=== PATIENT | male | born 1935 | race Caucasian/White ===

== ENCOUNTER → 2018-01-14 | Outpatient (CLI) | payer MEDICARE ==
[~2018-01-14] MED LIST: ASC500 PO; ASPI-1471 PO; ASPI-715 PO; CALC-649 PO; CAR3.125 PO; CARV12.577 PO; CARV12.578 PO; CEPH500C24 PO; CLOT30CR TP; DOCU-416 PO; FIN5 PO; FINA5TAB67 PO; IBUP600T22 PO; MULT-1335 PO; NIT4 SL; OXYC-373 PO; PNEU0.5D3 IM; SIMV-42 PO; SIMV-49 PO; TAM4 PO; TAMS0.4C25 PO
[2018-01-14 15:09] LABS: PLATELET COUNT, AUTOMATED 181 K/uL (150-450)
[2018-01-14 15:28] LABS: LDL CHOLESTEROL 63 mg/dl
== END ==
LOC: LAB 14:47
PROVIDERS: ATTEND Internal Medicine
DX: I25.10 Atherosclerotic heart disease of native coronary artery without angina pectoris (principal); Z95.5 Presence of coronary angioplasty implant and graft; E78.5 Hyperlipidemia, unspecified; I10 Essential (primary) hypertension; N40.0 Benign prostatic hyperplasia without lower urinary tract symptoms
CPT/HCPCS: 36415; 81001; 82040; 82247; 82310; 82374; 82435; 82465; 82565; 82947; 83718; 84075; 84132; 84153; 84155; 84295; 84443; 84450; 84460; 84478; 84520; 85025

== ENCOUNTER → 2018-06-26 | Outpatient (CLI) | payer MEDICARE ==
[~2018-06-26] MED LIST changes: +CAR6.25 PO
--- NOTE | 2018-06-26 15:50 | EKG ---
FACILITY: [facility] PATIENT NAME: SUHA SHAIKH : [id number] MR: [id number] V: [id number] EXAM DATE: ORDERING PHYSICIAN: FELICITY GONZALEZ TECHNOLOGIST: PARISH Test Reason : SX, CAD Blood Pressure : / mmHG Vent. Rate : 049 BPM Atrial Rate : 049 BPM P-R Int : 148 ms QRS Dur : 086 ms QT Int : 436 ms P-R-T Axes : 081 050 073 degrees QTc Int : 393 ms Sinus bradycardia Low voltage QRS Borderline ECG When compared with ECG of 13-JUL-2017 08:58, No significant change was found Confirmed by FELICITY GONZALEZ ([id number]) on 06/27/2018 12:32:17 PM Referred By: YESSENIA Confirmed By:FELICITY GONZALEZ
[2018-06-26 15:53] LABS: PLATELET COUNT, AUTOMATED 161 K/uL (150-450)
[2018-06-26 16:06] LABS: LDL CHOLESTEROL 59 mg/dl
== END ==
LOC: LAB 14:25
PROVIDERS: ATTEND Internal Medicine
DX: Z01.818 Encounter for other preprocedural examination (principal); R00.1 Bradycardia, unspecified; R94.31 Abnormal electrocardiogram [ECG] [EKG]; I25.10 Atherosclerotic heart disease of native coronary artery without angina pectoris; Z95.5 Presence of coronary angioplasty implant and graft; I10 Essential (primary) hypertension
CPT/HCPCS: 36415; 81001; 82040; 82247; 82310; 82374; 82435; 82465; 82565; 82947; 83036; 83718; 84075; 84132; 84155; 84295; 84443; 84450; 84460; 84478; 84520; 85025

== ENCOUNTER → 2018-07-09 | Outpatient (CLI) | payer MEDICARE ==
[~2018-07-09] MED LIST changes: +REGADENOSON 0.4 MG/5 ML SYR ONE
--- NOTE | 2018-07-10 07:40 | RADIOLOGY IMAGING REPORT ---
[place] [facility] [place] NAME: Jori Rai : 1935 MR: [id number] V: [id number] EXAM DATE: ORDERING PHYSICIAN: FELICITY GONZALEZ TECHNOLOGIST: Location: [facility] Patient: Jori Rai : 1935 Visit/Account:[id number] Date of Sevice: 07/09/2018 REGADENOSON (LEXISCAN) MYOCARDIAL PERFUSION IMAGING. EXAMINATION: Single isotope SPECT imaging with regadenoson infusion and gated SPECT imaging. DATE OF EXAMINATION: July 09, 2018. REQUESTING PHYSICIAN:LISA INDICATION: Coronary artery disease PROCEDURE: After informed consent the patient received an intravenous injection of Tc-99m sestamibi followed at an appropriate time interval by rest imaging. The patient then subsequently received an intravenous infusion of 0.4 mg of regadenoson per protocol without complication. Resting heart rate was 53 bpm with a peak heart rate of 73 bpm. Blood pressure at rest was 144/94 and following infusi on was 139/88 . Baseline EKG demonstrates sinus rhythm. There were no EKG changes of ischemia follo wing infusion. Non-specific symptoms were reported. The patient then received an intravenous inject ion of Tc-99m sestamibi followed by stress imaging. DOSE of Tc-99m sestamibi (mCi): REST: 12.4 STRESS: 28.9 RAW DATA: Examination of the summed raw data revealed a fair quality study. MYOCARDIAL PERFUSION: The tomographic images demonstrate normal myocardial perfusion study without e vidence of myocardial ischemia or infarct. GATED IMAGES: The gated images demonstrate normal LV systolic performance and wall motion with LVEF 63%. IMPRESSION: 1. Nondiagnostic ECG portion of Lexiscan stress test. 2. Normal myocardial perfusion study without evidence of myocardial ischemia or infarct 3. Normal LV systolic performance and wall motion with LVEF 63% Report Dictated By: Magdy Camilo at 07/10/2018 7:33 AM Report E-Signed By: Magdy Camilo at 07/10/2018 7:36 AM WSN:[id number]
--- NOTE | 2018-07-10 08:03 | RT STRESS TEST REPORT ---
FACILITY: [facility] PATIENT NAME: SUHA SHAIKH : [id number] MR: [id number] V: [id number] EXAM DATE: ORDERING PHYSICIAN: FELICITY GONZALEZ TECHNOLOGIST: Radha Acquisition Time: 2018-07-09 14:42:08 Total Exercise Time: 00:01:00 Test Indications: CAD Medications: See chart Protocol: LEXISCAN Max HR: 075 BPM 55% of Pred: 135 BPM Max BP: 153/076 mmHG Max Work Load: 1.0 METS Impression No EKG changes to suggest ischemia. Nuclear medicine report to follow Confirmed by FELICITY GONZALEZ ([id number]) on 07/10/2018 8:04:08 AM Referred By: Overread By: FELICITY GONZALEZ
== END ==
LOC: NUC 00:35
PROVIDERS: ATTEND Internal Medicine
DX: Z01.818 Encounter for other preprocedural examination (principal); I25.10 Atherosclerotic heart disease of native coronary artery without angina pectoris; Z95.5 Presence of coronary angioplasty implant and graft; I10 Essential (primary) hypertension
CPT/HCPCS: 78452; 93017; A9500; J2785

== ENCOUNTER 2018-07-15 01:09 | Inpatient (IN) | payer MEDICARE ==
--- NOTE | 2018-07-12 15:54 | HISTORY AND PHYSICAL ---
DATE OF ADMISSION: July 15, 2018 CHIEF COMPLAINT BPH with lower urinary tract symptoms and incomplete bladder emptying. HISTORY OF PRESENT ILLNESS Patient is an 83-year-old white male with a long history of BPH symptoms and elevated PSA who is status post three prior prostate biopsies in the and 2001. He is currently on medical therapy with Flomax and Proscar with increasing symptoms. over several years, and his residual has remained approximately 200 to 300. The patient did try to increase his Flomax to twice a day, but was not able to tolerate this dose secondary to dizziness. Urologic evaluation included a transurethral ultrasound of the prostate which revealed a 77 mL volume prostate. On CT scan several years ago, his prostate was approximately 95 mL in volume. A flexible cystoscopy was performed in the office which showed no urethral strictures; however, he had trilobar hypertrophy with a moderate median lobe and a 2 to 3+ trabeculated bladder. His most current PSA is 2.76 and has been stable for the last nine years while he has been on Proscar. Given the size of his prostate, he has elected to undergo an open, simple prostatectomy. Options of transurethral procedures were discussed with the patient. He is informed his prostatic size is at the borderline for a standard transurethral resection of the prostate. PAST MEDICAL HISTORY 1. Hypercholesterolemia. 2. Hypertension. 3. BPH with elevated PSA. 4. Coronary artery disease, status post TX in 1999. 5. Gastroesophageal reflux disease. PAST SURGICAL HISTORY 1. Cardiac stenting in 1999. 2. Laminectomy. 3. C-spine surgery. 4. Colonoscopy. ALLERGIES No known drug allergies. CURRENT MEDICATIONS 1. Aspirin. 2. Coreg. 3. Finasteride. 4. Flomax. 5. Mycostatin. 6. Simvastatin. FAMILY HISTORY Noncontributory. REVIEW OF SYSTEMS Patient denies chest pain, shortness of breath, dyspnea on exertion, nausea, vomiting, bleeding disorder, liver disease, or chronic headaches. LABORATORY DATA A urinalysis on the was normal without evidence of hematuria or infection. Recent PSA on the was also 1.96. A CBC on the 26 of June revealed a hematocrit of 43% and 161,000 platelets. The patient has been seen by Dr. Barone for cardiac clearance. PHYSICAL EXAMINATION GENERAL: Patient is a well-developed, well-nourished male in no acute distress. HEENT: Normocephalic, atraumatic. CHEST: Clear to auscultation bilaterally. CARDIOVASCULAR: Regular rate and rhythm. ABDOMINAL: Soft, nontender. No masses are palpated. GENITOURINARY: Deferred to the OR. EXTREMITIES: Without clubbing, cyanosis, or edema. NEUROLOGIC: Nonfocal. IMPRESSION An 83-year-old white male with a long history of increasing benign prostatic hypertrophy symptoms, now for open, simple prostatectomy. Specific risks and benefits of the procedure were discussed. Risks include bleeding, need for blood transfusion, infection, damage or scar formation to urethra, bladder, vessels, nerves, and bowels, possible leakage of urine from the surgical site, failure to improve symptoms, rare urinary incontinence, retrograde ejaculation, and need for another procedure. PLAN Will perform an open, simple, retrograde prostatectomy. TAYO
[~2018-07-15] VITALS: Ht 167.6 cm; Wt 59.9 kg
[2018-07-15] VITALS (11 sets, daily range): BP systolic 99–183; BP diastolic 53–103
[~2018-07-15 01:09] MED LIST changes: -REGADENOSON 0.4 MG/5 ML SYR ONE
[2018-07-15] MEDS ORDERED: ceFAZolin(*) 1 GM VIAL 1 GM in NS(*) 0.9% 100 ML ADDVANT BAG 100 ML IVPB ONE (06:30)
[2018-07-15] MEDS ORDERED: LIDOCAINE/SOD BICARB 8.4% SYR ID ONE (06:30)
[2018-07-15] MEDS ORDERED: NORMOSOL R SOLN(*) 1000 ML BAG 1,000 ML IV PRN (06:30)
[2018-07-15] MEDS ORDERED: FAMOTIDINE 20 MG TAB PO ONE (06:30)
[2018-07-15] MEDS: MIDAZOLAM 2 MG/2 ML VIAL IVP PRN ×2 (07:06→07:40)
[2018-07-15] MEDS ORDERED: ROCURONIUM BROM 10 MG/ML 10 ML ONE (07:18)
[2018-07-15] MEDS ORDERED: PROPOFOL EMUL(*) 10MG/ML 20 ML 20 ML ONE (07:18)
[2018-07-15] MEDS ORDERED: fentaNYL CITR 250 MCG/5 ML AMP ONE (07:18)
[2018-07-15] MEDS ORDERED: SUGAMMADEX SOD 200 MG/2 ML SDV ONE (07:18)
[2018-07-15] MEDS ORDERED: ONDANSETRON 4 MG/2 ML VIAL ONE (07:18)
[2018-07-15] MEDS ORDERED: LIDOCAINE MPF 1% 5 ML VIAL ONE (07:18)
[2018-07-15] MEDS ORDERED: DEXAMETHASONE SOD 4 MG/ML VIAL ONE (07:18)
[2018-07-15] MEDS ORDERED: KETAMINE HCL-NS 50 MG/5 ML SYR ONE (07:21)
[2018-07-15] MEDS ORDERED: ceFAZolin(*) 1 GM VIAL 1 GM, GENTAMICIN(*) 80 MG/2 ML VIAL 60 MG in NS 0.9% IRRIGATION ... IR ONE ×2 (07:30)
[2018-07-15] MEDS ORDERED: HYDROmorphone HCL 2 MG/ML SDV ONE (07:51)
[2018-07-15] MEDS ORDERED: GLYCOPYRROLATE 0.2MG/ML 1 ML INJ ONE (08:00)
[2018-07-15] MEDS ORDERED: INDIGOTINDISULF SOD 40 MG/5 ML ONE (09:14)
[2018-07-15] MEDS ORDERED: NEOMYCIN/POLYMYX/BACITR 30 GM TP ONE ×2 (09:15→10:36)
[2018-07-15] MEDS ORDERED: GELATIN SPONGE SZ 100 ONE (09:49)
[2018-07-15 11:36] LABS: PLATELET COUNT, AUTOMATED 142 K/uL (150-450)
[2018-07-15] MEDS ORDERED: MORPHINE 1 MG/ML 30 ML PCA IV PRN (11:45)
[2018-07-15] MEDS ORDERED: ZOLPIDEM TARTRATE 5 MG TAB PO PRN (11:45)
[2018-07-15] MEDS ORDERED: PHENAZOPYRIDINE 200 MG TAB PO PRN (11:45)
[2018-07-15] MEDS ORDERED: NS(*) 0.9% 1000 ML BAG 1,000 ML IV PRN (11:45)
[2018-07-15] MEDS ORDERED: BELLADONNA ALK/OPIUM 60MG SUPP PR PRN (11:55)
[2018-07-15] MEDS ORDERED: ONDANSETRON 4 MG/2 ML VIAL IVP PRN (12:00)
[2018-07-15] MEDS ORDERED: NALOXONE HCL 0.4 MG/ML VIAL IVP PRN (12:00)
[2018-07-15] MEDS: KETOROLAC 15 MG/ML VIAL IVP SCH ×2 (12:54→17:24)
[2018-07-15] MEDS ORDERED: NS 0.9% 3000 ML IRRIGATION BAG 3,000 ML IR ONE ×2 (13:03→15:18)
[2018-07-15] MEDS ORDERED: PCA LOCKBOX KEYS XX PRN (14:15)
[2018-07-15] MEDS: NEOMYCIN/POLYMYX/BACITR OINT 1 PACKET TP SCH (20:41)
[2018-07-15] MEDS: DOCUSATE SODIUM 100 MG CAP PO SCH (20:41)
[2018-07-15] MEDS ORDERED: NS 0.9% 3000 ML IRRIGATION BAG 6,000 ML IR ONE (22:18)
[2018-07-15] MEDS: NS 0.9% 3000 ML IRRIGATION BAG 3,000 ML in NS 0.9% 3000 ML IRRIGATION BAG 3,000 ML IR PRN (22:54)
[2018-07-16] MEDS: NS 0.9% 3000 ML IRRIGATION BAG 3,000 ML in NS 0.9% 3000 ML IRRIGATION BAG 3,000 ML IR PRN ×2 (00:03→12:28)
[2018-07-16] MEDS: KETOROLAC 15 MG/ML VIAL IVP SCH ×4 (00:03→18:45)
[2018-07-16] MEDS ORDERED: NS 0.9% 3000 ML IRRIGATION BAG 3,000 ML IR ONE ×2 (03:53→14:11)
--- NOTE | 2018-07-16 04:50 | OPERATIVE REPORT 1 ---
EVENT DATE: July 15, 2018 SURGEON: Hugh Mensah MD ANESTHESIOLOGIST: Frandy Burrows MD ANESTHESIA: General anesthetic. PADDED PRODUCTS FINISHER: Xander Lala MD PREOPERATIVE DIAGNOSIS Benign prostatic hyperplasia with lower urinary tract symptoms. POSTOPERATIVE DIAGNOSIS Benign prostatic hyperplasia with lower urinary tract symptoms. PROCEDURE PERFORMED Open simple retropubic prostatectomy. ESTIMATED BLOOD LOSS 500 mL. INTRAVENOUS FLUIDS Crystalloids. DRAINS 1. A 22-Tristanian three-way Elizabeth catheter. 2. An 18-Tristanian round Flynn closed suction drain. PATHOLOGY Prostate adenoma to pathology for permanent section. COMPLICATIONS None. CONDITION Patient taken to recovery room awake and in stable condition. STATEMENT OF MEDICAL NECESSITY Patient is an 83-year-old white male with a long history of BPH symptoms, who has failed medical management and is now being brought to the operating room for planned definitive surgical treatment. His workup has revealed approximately 80 mL volume prostate with a moderate median lobe extension and a 3+ trabeculated bladder. He is now being brought to the operating room for planned simple retropubic prostatectomy. DESCRIPTION OF PROCEDURE Patient was brought to the operating room, and after general anesthetic was obtained, he was placed supine on the operating room table. His hips were slightly flexed open, and he was prepped and draped sterilely. A lower midline incision was made from the pubic symphysis to approximately 2 cm below the umbilicus in the midline with the #15 blade knife. This was taken down to the aponeurosis of the linea alba with the electrocautery. The fascia was then incised longitudinally, with the rectus muscles being split in the midline to enter the space of Retzius. A self-retaining Bookwalter retractor was placed for exposure. A hemostatic stitch was placed on the anterior surface of the prostate at the 12 o'clock position, just under the pubic symphysis, superficially to provide hemostasis from the dorsal venous complex, with a 2-0 chromic gut stitch. After this was placed, there was a small amount of bleeding from the 7 o'clock position from the suture insertion, and another stitch was placed at this area to provide hemostatic control. At this point, the bladder neck was palpated and confirmed the position by filling the balloon on the Elizabeth catheter. At this point, two rows of hemostatic stitches were placed transversely across the prostate on the anterior surface from the 4 to 8 o'clock positions. One was right at the bladder neck and one just more distally toward the apex, approximately 1 cm apart. Following this, the capsulotomy was made with the Bovie to expose the adenoma. The plane between the pseudocapsule and adenoma was developed digitally. After it was developed around both laterally and anteriorly, the Elizabeth catheter was removed and the apical part of the dissection was completed digitally. At the bladder neck, the adenoma was transected with the electrocautery. On inspection, there was a small amount of median lobe extension remaining. This was then taken sharply as well at the bladder neck. Indigo carmine was given intravenously, and efflux of clear urine was noted from the bladder. Following this, copious amounts of double antibiotic solution were used in the incision. Deep hemostatic stitches were placed at the 5 and 7 o'clock positions in the prostatic fossa, and this was followed by re-trigonalization of the bladder neck using two #2-0 chromic stitches going from the bladder neck down to just next to the apex. Following this, a three-way 22-Tristanian Elizabeth catheter was guided into the meatus and down the urethra out through the apex into the prostatic fossa, where it was then guided into the bladder neck. Fifteen (15) mL of water was placed in the balloon. Then, the capsulotomy was closed with interrupted 2-0 chromic stitches to provide a watertight anastomosis. The balloon was then filled to a total of 30 mL and was irrigated with the bulb syringe. The capsulotomy incision was inspected and appeared to be watertight. At this point, small venous oozing vessels on the area of the incision and laterally were controlled with electrocautery. Again, the wound was irrigated with antibiotic solution. A Gelfoam was placed in the wound next to the prostate on the endopelvic fascia bilaterally. An 18-Tristanian rounded closed suction drain was placed through a separate stab wound incision on the patient's right side. This was then positioned in the pelvis next to but not on the capsulotomy incision. The self-retaining retractor was removed. The rectus muscle was reapproximated with interrupted #1 chromic. The fascia was closed with an 0 loop PDS. Subcuticular tissue was closed with a running 3- 0 chromic, and the skin was closed with a running 4-0 subcuticular Vicryl stitch. Skin adhesive was placed along the skin edge. A #1 silk was used to secure the drain at the skin edge. A sterile dressing was applied. The patient was begun on a slow continuous bladder irrigation with normal saline. A sterile dressing was placed. He was awakened in the operating room and taken the recovery area in stable condition. The plan will be to admit the patient for observation. We will check his labs this afternoon. He is to start ambulation today as well as a regular diet. TAYO
[2018-07-16 05:38] LABS: PLATELET COUNT, AUTOMATED 120 K/uL (150-450)
[2018-07-16 07:32] VITALS: BP 107/55
[2018-07-16] MEDS: DOCUSATE SODIUM 100 MG CAP PO SCH ×2 (08:58→20:45)
[2018-07-16] MEDS: FINASTERIDE 5 MG TAB PO SCH (08:58)
[2018-07-16] MEDS: NEOMYCIN/POLYMYX/BACITR OINT 1 PACKET TP SCH ×2 (08:58→20:45)
[2018-07-16] MEDS: ASPIRIN 81 MG ENTERIC COATED PO SCH (08:58)
[2018-07-16] MEDS: OXYBUTYNIN CHL XL 5 MG TABCR PO SCH (09:01)
[2018-07-16 09:34] VITALS: Ht 167.6 cm; Wt 59.9 kg
[2018-07-16 12:17] VITALS: BP 134/59
[2018-07-16 15:00] VITALS: BP 124/53
[2018-07-16 18:38] VITALS: BP 131/58
[2018-07-16] MEDS: SIMVASTATIN 20 MG TAB PO SCH (20:45)
[2018-07-16 20:51] VITALS: BP 129/66
[2018-07-17] VITALS (7 sets, daily range): BP systolic 101–156; BP diastolic 41–88
[2018-07-17 05:49] LABS: PLATELET COUNT, AUTOMATED 123 K/uL (150-450)
[2018-07-17] MEDS ORDERED: NS 0.9% 3000 ML IRRIGATION BAG 3,000 ML IR ONE (07:35)
[2018-07-17] MEDS: NS 0.9% 3000 ML IRRIGATION BAG 3,000 ML in NS 0.9% 3000 ML IRRIGATION BAG 3,000 ML IR PRN (07:37)
[2018-07-17] MEDS: CARVEDILOL 6.25 MG TAB PO SCH ×2 (09:30→09:41)
[2018-07-17] MEDS: OXYBUTYNIN CHL XL 5 MG TABCR PO SCH (09:41)
[2018-07-17] MEDS: DOCUSATE SODIUM 100 MG CAP PO SCH ×2 (09:41→20:51)
[2018-07-17] MEDS: ASPIRIN 81 MG ENTERIC COATED PO SCH (09:41)
[2018-07-17] MEDS: FINASTERIDE 5 MG TAB PO SCH (09:41)
[2018-07-17] MEDS: NEOMYCIN/POLYMYX/BACITR OINT 1 PACKET TP SCH ×2 (09:41→20:51)
[2018-07-17] MEDS: SIMVASTATIN 20 MG TAB PO SCH (20:51)
[2018-07-17] MEDS: APAP/HYDROCODONE 325/5 TAB PO PRN (20:54)
[2018-07-17] MEDS ORDERED: CARVEDILOL 6.25 MG TAB PO SCH (21:00)
[2018-07-18] MEDS: APAP/HYDROCODONE 325/5 TAB PO PRN (05:52)
[2018-07-18 07:23] VITALS: BP 137/64
[2018-07-18] MEDS: DOCUSATE SODIUM 100 MG CAP PO SCH (10:00)
[2018-07-18] MEDS: NEOMYCIN/POLYMYX/BACITR OINT 1 PACKET TP SCH (10:01)
[2018-07-18] MEDS: FINASTERIDE 5 MG TAB PO SCH (10:01)
[2018-07-18] MEDS: ASPIRIN 81 MG ENTERIC COATED PO SCH (10:01)
[2018-07-18] MEDS: OXYBUTYNIN CHL XL 5 MG TABCR PO SCH (10:01)
[2018-07-18 15:37] VITALS: BP 133/75
[2018-07-18] MEDS ORDERED: IBUP400T13 PO (16:23)
[2018-07-18] MEDS ORDERED: NEOM1PAC11 TP (16:24)
[2018-07-18] MEDS ORDERED: OXYB10TA21 PO (16:25)
[2018-07-18] MEDS ORDERED: HYDR-653 PO (16:26)
[2018-07-18] MEDS ORDERED: DOCU-416 PO (16:27)
--- NOTE | 2018-07-18 16:39 | DISCHARGE SUMMARY ---
DATE OF ADMISSION: July 15, 2018 DATE OF DISCHARGE: July 18, 2018 PRIMARY DIAGNOSIS Benign prostatic hypertrophy with lower urinary tract symptoms. SUMMARY OF HOSPITAL COURSE The patient is an 83-year-old white male who was admitted to the hospital on the 15 of July and was taken to the operating room and underwent an open simple retropubic prostatectomy. He had approximately 500 cc of blood loss. He was left with a LAVERNE drain and 22-Marshallese Elizabeth catheter. His postoperative course was fairly uncomplicated. His first postoperative night was uneventful. The following day he had mild discomfort. He had positive flatus and his diet was advanced. Over the course of the first day his LAVERNE put out approximately 10-15 cc per shift and his urine remained a light pink on a slow CBI. His hematocrit was 32% on postoperative day #1. Postoperative day #2 his hematocrit remained stable with stable vital signs. His LAVERNE drain was removed and he was continued on ambulation. On the 3rd postoperative day, the patient had a CBI stopped and his catheter plugged. His urine remained clear and he was deemed ready for discharge. CONDITION AT THE TIME OF DISCHARGE Good. ACTIVITY No heavy lifting for 4 weeks. INSTRUCTIONS The patient is given instructions as to Elizabeth catheter care with a urinary leg and bed bag. DISCHARGE MEDICATIONS 1. Everett. 2. Motrin. 3. Ditropan XL. 4. Antibiotic ointment to Elizabeth catheter. FOLLOW UP The patient will see me in the urology clinic on the 30 of July for Elizabeth catheter removal and voiding trial. TAYO
== END 2018-07-18 17:00 | disposition home or self-care (01) | DRG 708 ==
LOC: OR 01:09 → MED 12:35
PROVIDERS: ADMIT Urology; ATTEND Urology
PROC: 0VT00ZZ Resection of Prostate, Open Approach (ICD-10-PCS; principal; 2018-07-15 07:45)
DX: N40.1 Benign prostatic hyperplasia with lower urinary tract symptoms (principal); R39.14 Feeling of incomplete bladder emptying; I10 Essential (primary) hypertension; I25.10 Atherosclerotic heart disease of native coronary artery without angina pectoris; K21.9 Gastro-esophageal reflux disease without esophagitis; E78.00 Pure hypercholesterolemia, unspecified; I25.2 Old myocardial infarction; Z95.5 Presence of coronary angioplasty implant and graft; Z79.82 Long term (current) use of aspirin
CPT/HCPCS: 36415; 81001; 82040; 82247; 82310; 82374; 82435; 82565; 82947; 84075; 84132; 84153; 84155; 84295; 84450; 84460; 84520; 85025; 86850; 86900; 86901; 86920; 87088; 88307; 97161; A4346; J0690; J1100; J1170; J1885; J2001; J2250; J2405; J2704; J3010; J3490; J7030; J7050

== ENCOUNTER → 2019-01-09 | Outpatient (CLI) | payer MEDICARE ==
[2018-07-16 09:34] VITALS: BMI 21.3
[~2019-01-09] MED LIST changes: +HYDR-653 PO; +IBUP400T13 PO; +NEOM1PAC11 TP; +OXYB10TA21 PO
[2019-01-09 09:18] LABS: PLATELET COUNT, AUTOMATED 202 K/uL (150-450)
[2019-01-09 09:44] LABS: LDL CHOLESTEROL 70 mg/dl
== END ==
LOC: LAB 08:59
PROVIDERS: ATTEND Internal Medicine
DX: Z12.5 Encounter for screening for malignant neoplasm of prostate (principal); E78.5 Hyperlipidemia, unspecified; I10 Essential (primary) hypertension; R73.9 Hyperglycemia, unspecified; D64.9 Anemia, unspecified
CPT/HCPCS: 36415; 81001; 82607; 82728; 82746; 83036; 83540; 83550; 84443; 85025; G0103; 82040; 82247; 82310; 82374; 82435; 82465; 82565; 82947; 83718; 84075; 84132; 84153; 84155; 84295; 84450; 84460; 84478; 84520

== ENCOUNTER → 2019-01-15 | Outpatient (CLI) | payer MEDICARE ==
[2018-07-16 09:34] VITALS: BMI 21.3
[~2019-01-15] MED LIST changes: +PNEI IJ
--- NOTE | 2019-01-15 14:48 | RADIOLOGY IMAGING REPORT ---
FACILITY: [facility] [place] PATIENT NAME: Jori Rai : 1935 MR: [id number] V: [id number] EXAM DATE: ORDERING PHYSICIAN: FELICITY GONZALEZ TECHNOLOGIST: Location: [facility] [place] Patient: Jori Rai : 1935 Visit/Account:[id number] Date of Sevice: 01/15/2019 Exam type: L-SPINE 2 OR 3 VIEW History: back pain Comparison: Fibular 31/01/2012. Findings: There five nonrib-bearing lumbar-type vertebral bodies present. Again noted is the grade 1 anterolis thesis of L4 with respect L5 and mild retrolisthesis of L2 with respect L3. Disc space narrowing and marginal osteophytes throughout the lumbar spine appear similar to the prior study. Calcifications are noted in the abdominal aorta and branch vessels. A calcified nodule projects to the right of L4 appear in similar to the prior study IMPRESSION: 1. Extensive spondylotic changes lumbar spine as described. If patient's pain continues MR may be h elpful Report Dictated By: Larisa Salinas MD at 01/15/2019 2:42 PM Report E-Signed By: Larisa Salinas MD at 01/15/2019 2:43 PM WSN:[id number]
== END ==
LOC: LAB 11:48
PROVIDERS: ATTEND Internal Medicine
DX: M47.896 Other spondylosis, lumbar region (principal); I70.0 Atherosclerosis of aorta
CPT/HCPCS: 72100; 81001

== ENCOUNTER → 2019-01-21 | Outpatient (CLI) | payer MEDICARE ==
[2018-07-16 09:34] VITALS: BMI 21.3
[~2019-01-21] MED LIST changes: +GADOBENATE 529MG/1ML 15ML VIAL IVP ONE
--- NOTE | 2019-01-21 14:35 | RADIOLOGY IMAGING REPORT ---
FACILITY: [facility] [place] PATIENT NAME: Jori Rai : 1935 MR: [id number] V: [id number] EXAM DATE: ORDERING PHYSICIAN: FELICITY GONZALEZ TECHNOLOGIST: Location: [facility] Patient: Jori Rai : 1935 Visit/Account:[id number] Date of Sevice: 01/21/2019 EXAMINATION: MR SPINE LUMBAR W/ & W/O CON INDICATION: Back pain COMPARISON: Radiographs January 15, 2019 TECHNIQUE: Multiplane MR imaging was performed through the lumbar spine without and with contrast. 1 2 ml multihance injected. FINDINGS: Vertebral bodies and posterior elements: Normal Conus position/signal: Normal Marrow signal: Small patch of degenerative edema within the anterior upper L2 vertebral body. Extraspinal structures including psoas muscles/paraspinal soft tissues: Normal Other: Degenerative endplate enhancement at L1-2 and L2-3. L1-2: Mild disc space degeneration. Small disc protrusion. Slight bilateral lateral recess narrowin g. Moderate bilateral foraminal narrowing. L2-3: Moderate disc space degeneration, small disc protrusion, moderate facet arthropathy, mild bilat eral lateral recess narrowing. Moderate to severe bilateral proximal foraminal narrowing. L3-4: Laminectomy defect, small disc protrusion, moderate facet arthropathy and ligamentum flavum thi ckening. Bilateral lateral recess narrowing and moderate canal narrowing best visualized on axial im ages. Moderate right and severe left foraminal narrowing. L4-5: Grade 1 anterolisthesis of L4 on L5, moderate to severe facet arthropathy, minimal disc bulge, mild bilateral lateral recess narrowing and laminectomy defect. Moderate bilateral foraminal narrowi ng. L5-S1: Small disc protrusion, mild facet arthropathy, slight bilateral lateral recess narrowing, mode rate bilateral foraminal narrowing. IMPRESSION: 1. Grade 1 anterolisthesis of L4 on L5 secondary to moderate to severe facet arthropathy. 2. Moderate L3-4 canal narrowing secondary to the constellation of findings described above and best visualized on axial images. 3. Multilevel lateral recess narrowing, see level by level comments above. 4. Multilevel foraminal narrowing most pronounced at L2-3 and L3-4, see comments above. Report Dictated By: Abdias Goldberg MD at 01/21/2019 2:21 PM Report E-Signed By: Abdias Goldberg MD at 01/21/2019 2:30 PM WSN:[id number]
== END ==
LOC: MRI 01-20 12:31
PROVIDERS: ATTEND Internal Medicine
DX: M48.061 Spinal stenosis, lumbar region without neurogenic claudication (principal)
CPT/HCPCS: 72158; A9577